=== PATIENT | female | born 1985 | race Caucasian/White ===

== ENCOUNTER 2022-10-23 16:15 | Emergency (ER) | payer MEDICAID ==
[~2022-10-23] VITALS: Ht 167.6 cm; Wt 87.0 kg
[2022-10-23 16:21] VITALS: BP 124/82
[2022-10-23] MEDS ORDERED: IBUPROFEN 400MG TABLET PO ONE (16:45)
[2022-10-23] MEDS ORDERED: IBUP-2028 MT (18:57)
== END 2022-10-23 19:40 | disposition home or self-care (01) ==
LOC: ER 16:15
DX: M25.512 Pain in left shoulder (principal); M54.2 Cervicalgia; R51.9 Headache, unspecified; Z90.49 Acquired absence of other specified parts of digestive tract; Z98.890 Other specified postprocedural states; V43.52XA Car driver injured in collision with other type car in traffic accident, initial encounter; Y93.89 Activity, other specified; Y92.488 Other paved roadways as the place of occurrence of the external cause
CPT/HCPCS: 73030; 73560; 73590; 99284